=== PATIENT | male | born 1985 | race Caucasian/White ===

== ENCOUNTER 2020-08-17 19:06 | Emergency (ER) | payer SELFPAY ==
[2020-08-17 19:22] VITALS: BP 127/73; PULSE 81; RESP 16; TEMP 36.7; O2SAT 97; BMI 21.7
--- NOTE | 2020-08-17 20:24 | W.ED.ABDPA2 ---
HPI - Abdominal Pain General: Chief Complaint: Abdominal Pain Stated Complaint: STOMACH PAINS, VOMTING BLOOD (DARK & BRIGHT) Time Seen by Provider: 08/17/20 20:23 History of Present Illness: HPI narrative: Patient is a 35-year-old male who comes to the ED with abdominal pain and nausea and vomiting. Patient says he has been having some mild abdominal pain for the past month. He says he also has some nausea and vomiting that goes along with that. He states that today he woke up and he was having more severe and intense abdominal pain that was centrally located. He rates the pain about an 8 out of 10. He said he has had about 3 episodes of emesis today and said there was a little bit of blood in his vomit today as well. He endorses having diarrhea as well for the past month. Denies any chest pain, shortness of breath, dysuria or hematuria. Patient says he has not had any abdominal surgeries in the past. Associated Symptoms: Reports diarrhea, nausea and vomiting; Denies chills, constipation, dysuria, fever(s), hematochezia and hematuria Review of Systems Const: Denies: fever(s), chills or fatigue Eyes: Denies: change in vision or eye discomfort ENMT: Denies: throat pain, odynophagia, nasal discharge or nasal congestion Card: Denies: chest pain, palpitations, edema, swelling of feet/ankles, dyspnea on exertion or orthopnea Resp: Denies: dyspnea, productive cough or non-productive cough GI: Reports: abdominal pain, nausea, vomiting and diarrhea; Denies: constipation or hematochezia : Denies: flank pain, difficulty urinating, dysuria or hematuria Musc: Denies: neck pain, back pain or extremity swelling Skin/Breast: Denies: rash or new lesions Neuro: Denies: headache(s), numbness in extremities or weakness in extremities Physical Exam Const: COMMON NORMALS: no acute distress, patient oriented x3, healthy appearing and alert GENERAL APPEARANCE: cooperative and comfortable HENMT: COMMON NORMALS: normocephalic HEAD & SCALP: normocephalic MOUTH: Normal oral and palatal mucosa present THROAT: posterior oropharynx normal and uvula midline Neck/C-Spine: COMMON NORMALS: supple GENERAL: Yes normal visual inspection Resp: COMMON NORMALS: normal respiratory effort, No retractions, No use of accessory muscles and clear to auscultation bilaterally AUSCULTATION: clear to auscultation bilaterally Cardio: COMMON NORMALS: regular rate, regular rhythm, S1 normal heart sound present, S2 normal heart sound present, No gallops present (Cardio), No clicks present (Cardio), No murmurs present (Cardio) and Peripheral pulses 2+ throughout RATE: regular rate RHYTHM: regular rhythm HEART SOUNDS: S1 normal heart sound present and S2 normal heart sound present PERIPHERAL PULSES: Peripheral pulses 2+ throughout GI: COMMON NORMALS: Normal to inspection, nondistended, normoactive bowel sounds present, Soft to palpation and no masses PALPATION: Yes Soft to palpation and Yes Tenderness to palpation present (GI) Details: other (Periumbilical tenderness) : COMMON NORMALS: Yes no CVA tenderness BLADDER/KIDNEY EXAM: Yes no CVA tenderness Back/Pelvis: COMMON NORMALS: no CVA tenderness Extremity: COMMON NORMALS: normal to inspection Neuro: COMMON NORMALS: patient oriented x3 SENSORIUM/ORIENTATION: Yes alert GAIT: Yes Normal gait present Skin: GENERAL SKIN EXAM: dry skin Course Vital Signs: Vital signs: Vital Signs Temperature 98.1 F 08/17/20 19:22 Pulse Rate 20 L 08/17/20 23:32 Respiratory Rate 78 H 08/17/20 23:32 Blood Pressure 120/78 08/17/20 23:32 Pulse Oximetry 100 08/17/20 23:32 MDM - Abdominal Pain MDM Narrative: Medical decision making narrative: Patient is a 35-year-old male comes to the ED with abdominal pain, nausea/vomiting and diarrhea. He has been having the symptoms for about a month but he says today they got worse. Patient appears nontoxic and in no acute distress. He had some periumbilical abdominal tenderness but rest of exam was benign. CBC, CMP, lipase and UA were all unremarkable. CT of abdomen pelvis showed no acute findings. Patient was given some IV fluids, Zofran and morphine willing in the ED and his symptoms did improve. Patient diagnosed with abdominal pain and viral gastroenteritis and discharged charged home with some dicyclomine and Zofran. Patient was also wanting to get established with a PCP so I placed order with case management for patient to be referred to a PCP who is taking patients. Return to ED precautions given. I told patient that case management will be contacting him in the next several days set up appoint with the PCP. Patient understood agree with plan. Lab Data: Attestation: I reviewed the patient's lab results. Labs: Lab Results 08/17/20 08/17/20 08/17/20 Range/Units 20:25 20:25 20:25 WBC 7.7 (4.0-10.0) 10^3/ uL RBC 5.18 (4.1-5.3) 10^6/u L Hgb 15.8 (11.7-16.6) g/dL Hct 46.9 (42.0-52.0) % MCV 90.5 (80-94) fL MCH 30.5 (28.0-34.0) pg MCHC 33.7 (30.0-36.0) g/dL RDW 12.5 (12.1-15.1) % Plt Count 266 (130-400) 10^3/c mm MPV 9.8 (7.4-10.4) fL Neut % (Auto) 58.1 % Lymph % (Auto) 31.8 % [place] % (Auto) 8.2 % Eos % (Auto) 1.3 % Baso % (Auto) 0.3 % Neut # (Auto) 4.47 (1.8-7.7) 10^3/u L Lymph # (Auto) 2.4 (0.8-4.8) 10^3/u L [place] # (Auto) 0.6 (0.2-0.9) 10^3/u L Eos # (Auto) 0.1 (0.0-0.8) 10^3/u L Baso # (Auto) 0.0 (0.0-0.1) 10^3/u L Nucleated RBC % (a uto) 0 % Nucleated RBCs # 0.0 /100WBC PT 14.60 (12.1-14.9) SECO NDS INR 1.10 (0.8-1.2) Sodium 140 (136-145) mmol/L Potassium 3.7 (3.5-5.1) mmol/L Chloride 103 (98-107) mmol/L Carbon Dioxide 29 (22-29) mmol/L Anion Gap 11.7 (5-19) BUN 7 (6-20) mg/dL Creatinine 1.1 (0.7-1.2) mg/dL GFR Calculation 76.2 L (90-130) mL/min Glucose 90 (65-115) mg/dL Calculated Osmolal ity 288 (285-295) mOsm/k g Calcium 9.3 (8.5-10.5) mg/dL Total Bilirubin 0.5 (0.15-1.2) mg/dL AST 14 (0-40) U/L ALT 9 (0-41) U/L Alkaline Phosphata se 73 (40-130) IU/L Total Protein 7.2 (6.6-8.7) g/dL Albumin 4.5 (3.5-5.2) g/dL Globulin 2.7 (1.3-4.6) g/dL Lipase 50 (13-60) U/L Urine Color (Yellow) Urine Appearance (CLEAR) Urine pH (5-7) Ur Specific Gravit y (1.005-1.030) Urine Protein (Negative) Urine Glucose (UA) (Normal) Urine Ketones (Negative) Urine Blood (Negative) Urine Nitrate (Negative) Urine Bilirubin (Negative) Urine Urobilinogen (Negative) mg/dL Ur Leukocyte Fifi ase (Negative) Urine RBC (0-2) /hpf Urine WBC (0-5) /hpf Ur Squamous Epith Cells (0-5) /hpf Amorphous Sediment /hpf Urine Bacteria (NONE) /hpf Urine Mucus /hpf 08/17/ Range/Units 21:20 WBC (4.0-10.0) 10^3/ uL RBC (4.1-5.3) 10^6/u L Hgb (11.7-16.6) g/dL Hct (42.0-52.0) % MCV (80-94) fL MCH (28.0-34.0) pg MCHC (30.0-36.0) g/dL RDW (12.1-15.1) % Plt Count (130-400) 10^3/c mm MPV (7.4-10.4) fL Neut % (Auto) % Lymph % (Auto) % [place] % (Auto) % Eos % (Auto) % Baso % (Auto) % Neut # (Auto) (1.8-7.7) 10^3/u L Lymph # (Auto) (0.8-4.8) 10^3/u L [place] # (Auto) (0.2-0.9) 10^3/u L Eos # (Auto) (0.0-0.8) 10^3/u L Baso # (Auto) (0.0-0.1) 10^3/u L Nucleated RBC % (a uto) % Nucleated RBCs # /100WBC PT (12.1-14.9) SECO NDS INR (0.8-1.2) Sodium (136-145) mmol/L Potassium (3.5-5.1) mmol/L Chloride (98-107) mmol/L Carbon Dioxide (22-29) mmol/L Anion Gap (5-19) BUN (6-20) mg/dL Creatinine (0.7-1.2) mg/dL GFR Calculation (90-130) mL/min Glucose (65-115) mg/dL Calculated Osmolal ity (285-295) mOsm/k g Calcium (8.5-10.5) mg/dL Total Bilirubin (0.15-1.2) mg/dL AST (0-40) U/L ALT (0-41) U/L Alkaline Phosphata se (40-130) IU/L Total Protein (6.6-8.7) g/dL Albumin (3.5-5.2) g/dL Globulin (1.3-4.6) g/dL Lipase (13-60) U/L Urine Color Yellow (Yellow) Urine Appearance Clear (CLEAR) Urine pH 6.5 (5-7) Ur Specific Gravit y 1.010 (1.005-1.030) Urine Protein Neg (Negative) Urine Glucose (UA) Norm (Normal) Urine Ketones Negative (Negative) Urine Blood Neg (Negative) Urine Nitrate Negative (Negative) Urine Bilirubin Neg (Negative) Urine Urobilinogen 1 H (Negative) mg/dL Ur Leukocyte Fifi ase Negative (Negative) Urine RBC 0-4 H (0-2) /hpf Urine WBC 0-4 H (0-5) /hpf Ur Squamous Epith Cells 0-4 H (0-5) /hpf Amorphous Sediment 1+ /hpf Urine Bacteria Trace (NONE) /hpf Urine Mucus 2+ /hpf Imaging Data ^: CT Abd/Pel: Attestation: I personally reviewed and interpreted this imaging study as follows: Radiologist's impression: [facility] [address] [place] [address] CT Scan Report Signed Patient: Catracho Joseph Unit #: [id number] : 1985 Age/Sex: 35 / M ADM Date: 08/17/20 Loc: ER Room/Bed: Attending Dr: Ordering Provider/Ordering MD: Jasen Huang Date of Service: 08/17/20 Procedure(s): CT abdomen pelvis w con* [id number] Accession Number(s): [id number] Report Number: [id number] PROCEDURE INFORMATION: Exam: CT Abdomen And Pelvis With Contrast Exam date and time: 08/17/2020 8:31 PM Age: 35 years old Clinical indication: Abdominal pain; Patient HX: N/v/d generalized abd pain x 1mo; Additional info: Periumbilical abdominal pain with n/v TECHNIQUE: Imaging protocol: Computed tomography of the abdomen and pelvis with contrast. Total images: 214 Radiation optimization: All CT scans at this facility use at least one of these dose optimization techniques: automated exposure control; mA and/or kV adjustment per patient size (includes targeted exams where dose is matched to clinical indication); or iterative reconstruction. Contrast material: OMNI 300; Contrast volume: 95 ml; Contrast route: INTRAVENOUS (IV); COMPARISON: No relevant prior studies available. RADIATION DOSE METRICS: Total DLP (mGy-cm): 797.57 FINDINGS: Lungs: Limited assessment of the lung bases fails to reveal evidence for active cardiopulmonary process. Liver: Rare tiny simple hepatic cyst. No visible hepatic mass. Gallbladder and bile ducts: Normal. No calcified stones. No ductal dilation. Pancreas: Pancreas is unremarkable. No visible pancreatic ductal ectasia. Spleen: Spleen unremarkable. Adrenal glands: Adrenal glands unremarkable. Kidneys and ureters: No hydronephrosis or perinephric fluid. No visible nephrolithiasis or visible ureterolithiasis Small simple cortical cyst equator left kidney measuring 8 mm. No follow-up recommended. Stomach and bowel: Assessment of the hollow viscus fails to reveal evidence of active or acute pathology. Nonobstructed bowel pattern. No visible acute diverticulitis. No visible adynamic or reactive ileus. Appendix: The appendix is visualized and appears noninflamed. Intraperitoneal space: No visible evidence of mesenteric lymphadenitis or active mesenteritis/panniculitis. No visible pneumoperitoneum or intraperitoneal ascites. Vasculature: Portal vein patent. The abdominal aorta is nonaneurysmal. Lymph nodes: No current visible evidence of active mesenteric or retroperitoneal lymphadenopathy. Urinary bladder: Urinary bladder unremarkable. Reproductive: Unremarkable as visualized. Bones/joints: No visible active or acute osseous pathology. Soft tissues: Unremarkable. CT/CT abdomen pelvis w con* [id number] IMPRESSION: Currently no visible evidence for acute abdominal or pelvic pathologic process. Radiation Dose CTDIVOL = (mGy): DLP = 797.57 (mGy-cm) Dictated By: Julito Worrell Signed By: Julito Worrell Signed Date/Time: 08/17/202225 DD/ 24 Discharge Plan Discharge Patient Disposition: Home Clinical Impression: Viral gastroenteritis Abdominal pain Qualifiers: Abdominal location: periumbilical Qualified Code(s): R10.33 - Periumbilical pain Condition: Stable Prescriptions: New dicyclomine 20 mg tablet 20 mg PO QID Qty: 30 RF: 0 ondansetron 4 mg tablet,disintegrating 4 mg PO Q8H PRN (Reason: nausea and vomiting) Qty: 15 RF: 0 Discharge Orders: Discharge ED (Routine); Ordered 08/17/20 Ordered By: Jasen Huang Discharge Diet: Advance as tolerated and Clear Liquid Discharge Activity: Increase activity as tolerated Patient Instructions: Gastroenteritis (ED), Abdominal Pain (ED) Activity Restrictions/Additional Instructions: Follow-up with medical provider as directed. Case management will contact you in the next several days to set up an appointment with a primary care physician. Take medications as prescribed. Return to the ER or your medical provider if condition worsens. Please read and understand discharge instructions. Thank you for choosing [facility] for your healthcare needs today. Please realize this is an emergency room and that we are providing you with a medical screening exam and this may not be complete and all inclusive of all the testing and or work up that you may need to determine your ailment or severity of your illness. It is very important that you follow up as instructed or that you return to the Emergency Department should you have concerns or if your condition changes or worsens in any way. Stand Alone Forms: Work/School Release Coding Level of Care Code ED Computational Biologist for Chg Fwd Exam Comprehensive
[2020-08-17 20:30] LABS: Basophils % 0.3 %; Eosinophils # 0.1 10^3/uL (0.0-0.8); Eosinophils % 1.3 %; Hematocrit 46.9 % (42.0-52.0); Hemoglobin 15.8 g/dL (11.7-16.6); Lymphocytes # 2.4 10^3/uL (0.8-4.8); Lymphocytes % 31.8 %; Mean Corpuscular HGB Conc 33.7 g/dL (30.0-36.0); Mean Corpuscular Hemoglobin 30.5 pg (28.0-34.0); Mean Corpuscular Volume 90.5 fL (80-94); Mean Platelet Volume 9.8 fL (7.4-10.4); Monocytes # 0.6 10^3/uL (0.2-0.9); Monocytes % 8.2 %; Neutrophils # 4.47 10^3/uL (1.8-7.7); Neutrophils % 58.1 %; Nucleated Red Blood Cells % 0 %; Platelet Count 266 10^3/cmm (130-400); Red Blood Count 5.18 10^6/uL (4.1-5.3); Red Cell Distribution Width 12.5 % (12.1-15.1); White Blood Count 7.7 10^3/uL (4.0-10.0)
--- NOTE | 2020-08-17 20:31 | CTR_ITS ---
PROCEDURE INFORMATION: Exam: CT Abdomen And Pelvis With Contrast Exam date and time: 08/17/2020 8:31 PM Age: 35 years old Clinical indication: Abdominal pain; Patient HX: N/v/d generalized abd pain x 1mo; Additional info: Periumbilical abdominal pain with n/v TECHNIQUE: Imaging protocol: Computed tomography of the abdomen and pelvis with contrast. Total images: 214 Radiation optimization: All CT scans at this facility use at least one of these dose optimization techniques: automated exposure control; mA and/or kV adjustment per patient size (includes targeted exams where dose is matched to clinical indication); or iterative reconstruction. Contrast material: OMNI 300; Contrast volume: 95 ml; Contrast route: INTRAVENOUS (IV); COMPARISON: No relevant prior studies available. RADIATION DOSE METRICS: Total DLP (mGy-cm): 797.57 FINDINGS: Lungs: Limited assessment of the lung bases fails to reveal evidence for active cardiopulmonary process. Liver: Rare tiny simple hepatic cyst. No visible hepatic mass. Gallbladder and bile ducts: Normal. No calcified stones. No ductal dilation. Pancreas: Pancreas is unremarkable. No visible pancreatic ductal ectasia. Spleen: Spleen unremarkable. Adrenal glands: Adrenal glands unremarkable. Kidneys and ureters: No hydronephrosis or perinephric fluid. No visible nephrolithiasis or visible ureterolithiasis Small simple cortical cyst equator left kidney measuring 8 mm. No follow-up recommended. Stomach and bowel: Assessment of the hollow viscus fails to reveal evidence of active or acute pathology. Nonobstructed bowel pattern. No visible acute diverticulitis. No visible adynamic or reactive ileus. Appendix: The appendix is visualized and appears noninflamed. Intraperitoneal space: No visible evidence of mesenteric lymphadenitis or active mesenteritis/panniculitis. No visible pneumoperitoneum or intraperitoneal ascites. Vasculature: Portal vein patent. The abdominal aorta is nonaneurysmal. Lymph nodes: No current visible evidence of active mesenteric or retroperitoneal lymphadenopathy. Urinary bladder: Urinary bladder unremarkable. Reproductive: Unremarkable as visualized. Bones/joints: No visible active or acute osseous pathology. Soft tissues: Unremarkable. CT/CT abdomen pelvis w con* [id number] IMPRESSION: Currently no visible evidence for acute abdominal or pelvic pathologic process. Radiation Dose CTDIVOL = (mGy): DLP = 797.57 (mGy-cm)
[2020-08-17] MEDS: sodium chloride 0.9% 1,000 ML 999 ML IV (20:45)
[2020-08-17 20:46] VITALS: RESP 18
[2020-08-17] MEDS: morphine 4 mg/mL SDV 1 mL IVP (20:46)
[2020-08-17] MEDS: ondansetron 2 mg/ML SDV 2 mL 4 MG IVP (20:46)
[2020-08-17 20:48] LABS: Alanine Aminotransferase 9 U/L (0-41); Albumin Level 4.5 g/dL (3.5-5.2); Alkaline Phosphatase 73 IU/L (40-130); Anion Gap 11.7 (5-19); Aspartate Amino Transferase 14 U/L (0-40); Blood Urea Nitrogen 7 mg/dL (6-20); Calcium 9.3 mg/dL (8.5-10.5); Carbon Dioxide 29 mmol/L (22-29); Chloride 103 mmol/L (98-107); Globulin 2.7 g/dL (1.3-4.6); Glomerular Filtration Rate 76.2 mL/min (90-130); Glucose 90 mg/dL (65-115); Lipase 50 U/L (13-60); Osmolality Calculated 288 mOsm/kg (285-295); Potassium 3.7 mmol/L (3.5-5.1); Sodium 140 mmol/L (136-145); Total Bilirubin 0.5 mg/dL (0.15-1.2); Total Protein 7.2 g/dL (6.6-8.7)
[2020-08-17 21:19] VITALS: BP 121/78; PULSE 62; RESP 18; O2SAT 100
[2020-08-17 21:36] LABS: Amorphous Sediment Urine 1+ /hpf; Bacteria Urine TRACE /hpf; Bilirubin Urine Neg (Negative); Blood Urine Neg (Negative); Glucose Urine UA Norm (Normal); Ketones Urine Negative (Negative); Leukocyte Esterase Urine Negative (Negative); Mucus Urine 2+ /hpf; Nitrate Urine Negative (Negative); Protein Urine Neg (Negative); RBC Urine 0-4 /hpf (0-2); Squamous Epithelial Cell Urine 0-4 /hpf (0-5); Urine Appearance Clear (CLEAR); Urine Color Yellow (Yellow); Urobilinogen Urine 1 mg/dL (Negative); WBC Urine 0-4 /hpf (0-5); pH Urine 6.5 (5-7)
[2020-08-17] MEDS: iohexol 300 mg/mL 100 mL Btl IV (21:57)
[2020-08-17 23:32] VITALS: BP 120/78; PULSE 20; RESP 78; O2SAT 100
--- NOTE | 2020-08-18 12:33 | PC.SOCIAL ---
Patient refused to be set up at this time with PCP. We discussed the sliding scale option at [facility] and provided patient the number. He did write this down and repeated number back. He has no further needs at this time.
== END 2020-08-17 23:00 | disposition home or self-care (01) ==
PROVIDERS: Emergency Medicine; Emergency Provider Physician Assistant
DX: A08.4 Viral intestinal infection, unspecified (principal); R10.33 Periumbilical pain
CPT/HCPCS: 74177; 80053; 81001; 83690; 85025; 85610; 96361; 96374; 96375; 99284; J2270; J2405; J7030; Q9967

== ENCOUNTER 2020-10-25 11:15 | Emergency (ER) | payer SELFPAY ==
--- NOTE | 2020-10-25 11:34 | XRR_ITS ---
PROCEDURE INFORMATION: Exam: XR Left Knee Exam date and time: 10/25/2020 11:34 AM Age: 35 years old Clinical indication: Pain; Knee; Left; Additional info: L knee pain TECHNIQUE: Imaging protocol: XR Left knee. Views: 1 or 2 views. COMPARISON: No relevant prior studies available. FINDINGS: Bones/joints: Negative for acute bony abnormality Soft tissues: Normal. XR/XR knee LT 1-2V 57211 IMPRESSION: No acute findings.
[2020-10-25 11:37] VITALS: BP 117/77; PULSE 77; RESP 17; TEMP 36.8; O2SAT 97; BMI 21.7
[2020-10-25 11:56] VITALS: BP 123/71; PULSE 72; RESP 16; O2SAT 100
--- NOTE | 2020-10-25 12:21 | W.ED.EXTPRO ---
HPI - Extremity Problem General: Chief complaint: Extremity Problem,Nontraumatic Stated complaint: left knee injury Time Seen by Provider: 10/25/20 11:32 Review of Systems Narrative: Constitutional: No fever, no chills. HEENT: No vision changes CV: No chest pain, no palpitations PULM: no cough, no dyspnea. GI: No abdominal pain, no N/V/D. : No dysuria MSKEL: No muscle pain SKIN: No new rashes, no lesions. NEURO: No headache, no focal weakness. HEME: No visible bruises PSYCH: Normal mood Physical Exam Narrative: EXAM NARRATIVE: Head: Atraumatic Eyes: PERRL, conjunctiva without injection ENT: Mucous membrane moist NECK: Supple, ROM intact LUNGS: LCTAB, no crackles/rhonchi CV: RRR ABDOMEN: Soft, nontender in all quadrants EXTREMITY: Normal ROM SKIN: No rash or erythema NEURO: Awake and alert, no focal motor deficits PSYCH: Normal mood and affect Course Vital Signs: Vital signs: Vital Signs Temperature 98.3 F 10/25/20 11:37 Pulse Rate 72 10/25/20 11:56 Respiratory Rate 16 10/25/20 11:56 Blood Pressure 123/71 10/25/20 11:56 Pulse Oximetry 100 10/25/20 11:56 Discharge Plan Discharge Patient Disposition: Home Clinical Impression: Acute knee pain, Knee swelling Condition: Stable Prescriptions: New Voltaren Arthritis Pain 1 % gel 2 g topical BID PRN (Reason: pain) 7 Days Qty: 100 RF: 0 lidocaine 3 % cream 1 applic topical BID PRN (Reason: pain) 7 Days Qty: 28.35 RF: 0 acetaminophen 500 mg capsule 500 mg PO Q6H PRN (Reason: pain) 7 Days Qty: 28 RF: 0 No Action dicyclomine 20 mg tablet 20 mg PO QID Qty: 30 RF: 0 ondansetron 4 mg tablet,disintegrating 4 mg PO Q8H PRN (Reason: nausea and vomiting) Qty: 15 RF: 0 Discharge Diet: Advance as tolerated Discharge Activity: Resume usual activity Patient Instructions: Knee Pain (ED) Activity Restrictions/Additional Instructions: Please follow up with orthopedics for further evaluation of knee pain Coding Level of Care Code 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
--- NOTE | 2020-10-25 12:26 | ED_ITS ---
HPI - General Adult General: Chief complaint: Extremity Problem,Nontraumatic Stated complaint: left knee injury Time Seen by Provider: 10/25/20 11:32 History of Present Illness: HPI narrative: Patient is a 35-year-old male presents the emergency room with complaints of left knee swelling and pain x 1 day. Patient was try to get up he suddenly noticed that his knee twisted and became painful. Patient denies any obvious dislocation. Persistent, patient reports left knee swelling and decreased range of motion due to pain. Patient denies any other trauma or injury at this time. No other focal complaints. Onset:1 day ago Duration:1 day Location:home Severity:mild/moderate Review of Systems Narrative: Constitutional: No fever, no chills. HEENT: No vision changes CV: No chest pain, no palpitations PULM: no cough, no dyspnea. GI: No abdominal pain, no N/V/D. : No dysuria MSKEL: No muscle pain, + L knee pain/swelling SKIN: No new rashes, no lesions. NEURO: No headache, no focal weakness. HEME: No visible bruises PSYCH: Normal mood Physical Exam Narrative: EXAM NARRATIVE: Head: Atraumatic Eyes: PERRL, conjunctiva without injection ENT: Mucous membrane moist NECK: Supple, ROM intact LUNGS: LCTAB, no crackles/rhonchi CV: RRR ABDOMEN: Soft, nontender in all quadrants EXTREMITY: Normal ROM, 2+ DP pulses in the left lower extremity, neurovascular exam of the left leg intact, left knee swelling. Tenderness to palpation over the left knee. Patient is able to straighten the left knee. Negative Lachemann sign, +L anterior medial knee tenderness to lateral varus stress to the L leg SKIN: No rash or erythema NEURO: Awake and alert, no focal motor deficits PSYCH: Normal mood and affect Course Vital Signs: Vital signs: Vital Signs Temperature 98.3 F 10/25/20 11:37 Pulse Rate 74 10/25/20 12:44 Respiratory Rate 16 10/25/20 12:44 Blood Pressure 121/79 10/25/20 12:44 Pulse Oximetry 98 10/25/20 12:44 MDM - General Adult MDM Narrative: Medical decision making narrative: Patient is a 35-year-old male who presents the emergency room with complaints of left knee swelling and pain after attempting to stand up straight was 1 day ago. X-ray did not show any signs of fracture. Patient received Tylenol in the emergency room. No suspicion of knee dislocation. I recommended RICE therapy for knee swelling and pain. Patient is given follow- up with orthopedic provider for evaluation of possible ligamentous injury. Patient is knee is placed in a knee immobilizer for comfort and crutches. Rx capsaicin, voltaren cream, and tylenol PRN pain. Position discharge. I have informed patient I have the referred him through our dependency case managermanager bilingual and he will be contacted in the next few days to schedule him for an appointment with orthopedics for further evaluation. Imaging Data^: Other Imaging: Radiologist's impression: [address] [address]DX[place] ReportSigned Patient: Catracho JosephUnvladimir #: [id number]: 1985Acct#:[id number]/Sex: 35 / MADM Date: 10/25/20Loc: ERRoo/Bed:Attending Dr: Ordering Provider/Ordering MD: Jenelle Abraham MD Date of Service: 10/25/20 Procedure(s): XR knee LT 1-2V 47596 Accession Number(s): [id number] Report Number: [id number] PROCEDURE INFORMATION: Exam: XR Left Knee Exam date and time: 10/25/2020 11:34 AM Age: 35 years old Clinical indication: Pain; Knee; Left; Additional info: L knee pain TECHNIQUE: Imaging protocol: XR Left knee. Views: 1 or 2 views. COMPARISON: No relevant prior studies available. FINDINGS: Bones/joints: Negative for acute bony abnormality Soft tissues: Normal. XR/XR knee LT 1-2V [id number] IMPRESSION: No acute findings. Dictated By:Reymundo Clifton By:Reymundo Clifton Date/Time:10/25/20 1255DD/ 1253 Discharge Plan Discharge Patient Disposition: Home Clinical Impression: Acute knee pain, Knee swelling Condition: Stable Prescriptions: New Voltaren Arthritis Pain 1 % gel 2 g topical BID PRN (Reason: pain) 7 Days Qty: 100 RF: 0 lidocaine 3 % cream 1 applic topical BID PRN (Reason: pain) 7 Days Qty: 28.35 RF: 0 acetaminophen 500 mg capsule 500 mg PO Q6H PRN (Reason: pain) 7 Days Qty: 28 RF: 0 No Action dicyclomine 20 mg tablet 20 mg PO QID Qty: 30 RF: 0 ondansetron 4 mg tablet,disintegrating 4 mg PO Q8H PRN (Reason: nausea and vomiting) Qty: 15 RF: 0 Discharge Orders: Discharge ED (Routine); Ordered 10/25/20 Ordered By: Jenelle Abraham Discharge Diet: Advance as tolerated Discharge Activity: Resume usual activity Patient Instructions: Knee Pain (ED) Activity Restrictions/Additional Instructions: Please follow up with orthopedics for further evaluation of knee pain and swelling. Come back to the emergency room if you have any new or concerning issues. Our dependency case manager will call you in the next few days to schedule you for orthopedics appointment. Please use knee immobilizers, pain medicine and crutches as needed for pain and swelling. 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
[2020-10-25] MEDS: acetaminophen 500 mg Tablet PO (12:38)
[2020-10-25 12:44] VITALS: BP 121/79; PULSE 74; RESP 16; O2SAT 98
--- NOTE | 2020-10-26 10:28 | DCPLANNER ---
practice manager had message to schedule a follow up appointment for patient with ortho. practice manager called the ortho clinic, spoke with Jeana, gave clinic patients information. practice manager was told that patients information would be printed and reviewed. Clinic will call patient with appointment information.
--- NOTE | 2020-10-27 08:00 | DCPLANNER ---
Patient has a follow up appointment scheduled for Monday, October 28, 2020 at 10:[address] Holden at [facility]. Clinic will call patient with appointment information.
--- NOTE | 2020-11-20 09:14 | DCPLANNER ---
Patient had a follow up appointment scheduled for 10.28.20 with ortho - patient did not attend appointment.
== END 2020-10-25 12:51 | disposition home or self-care (01) ==
PROVIDERS: Emergency Provider Emergency Medicine
DX: M25.562 Pain in left knee (principal); M25.462 Effusion, left knee
CPT/HCPCS: 29530; 73560; 99283; E0114

== ENCOUNTER 2021-06-17 06:56 | Emergency (ER) | payer SELFPAY ==
[2021-06-17 07:18] VITALS: BP 144/90; PULSE 78; RESP 18; TEMP 36.7; O2SAT 99; BMI 21.7
--- NOTE | 2021-06-17 07:38 | ED_ITS ---
HPI - Male Genitourinary General: Chief complaint: Urogenital-Male Stated complaint: wants checked for std Time Seen by Provider: 06/17/21 07:18 History of Present Illness: 35-year-old male presents emergency department chief complaint of urethritis painful urination concerns of STD reports he got hooked back up with his ex in which he has developed dysuria this he reported that this is sexual contact was earlier this week. He reports having a known history of gonorrhea as well as chlamydia. He does not recall any known history of any HIV or AIDS or any other sexually transmitted diseases he recalls having no abdominal pain reports no fevers no chills no back or flank pain or any other associated symptoms. Associated symptoms: Reports dysuria; Deny nausea or vomiting Review of Systems General: Reports: 10 or more systems reviewed and unremarkable except in HPI and below Const: Denies: fever(s), chills, fatigue or malaise Eyes: Denies: change in vision or blurry vision Card: Denies: chest pain or palpitations Resp: Denies: dyspnea or productive cough GI: Denies: abdominal pain, nausea or vomiting : Reports: difficulty urinating, dysuria, urinary frequency, urinary urgency and penile discharge; Denies: flank pain Musc: Denies: extremity pain or extremity swelling Skin/Breast: Denies: rash or pruritus Neuro: Denies: headache(s) Psych: Denies: anxiety or depression Brody/Lymph: Denies: easy bleeding All/Imm: Denies: urticaria, throat swelling or facial swelling Physical Exam Narrative: EXAM NARRATIVE: Patient appears nontoxic. No obvious acute distress Const: COMMON NORMALS: no acute distress, patient oriented x3 and healthy appearing HENMT: COMMON NORMALS: normocephalic and atraumatic HEAD & SCALP: normocephalic and atraumatic Eye: COMMON NORMALS: Equal, round and reactive pupils present and EOMs intact bilaterally PUPIL: Yes Equal, round and reactive pupils present Neck/C-Spine: COMMON NORMALS: full ROM, supple and no JVD Lymph: LYMPHATIC: no lymphadenopathy noted Chest: COMMONS NORMALS: normal inspection of the chest and normal palpation of entire chest wall Resp: COMMON NORMALS: normal respiratory effort, No retractions and clear to auscultation bilaterally EFFORT & INSPECTION: Yes able to speak in complete sentences and Yes symmetric chest movement AUSCULTATION: clear to auscultation bilaterally Cardio: COMMON NORMALS: no JVD, regular rate and regular rhythm RATE: regular rate RHYTHM: regular rhythm GI: COMMON NORMALS: Normal to inspection, nondistended, normoactive bowel sounds present, Soft to palpation and non-tender INSPECTION: Yes normal to inspection PALPATION: Yes Soft to palpation : COMMON NORMALS: Yes no CVA tenderness BLADDER/KIDNEY EXAM: Yes no CVA tenderness PENIS: circumcised OTHER: Mild whitish penile urethral discharge appreciated Back/Pelvis: COMMON NORMALS: no CVA tenderness Extremity: COMMON NORMALS: normal to inspection and full ROM Neuro: COMMON NORMALS: patient oriented x3, CN's II-XII intact bilaterally, moves all extremities and no focal motor deficits Psych: COMMON NORMALS: mental status grossly normal, Normal thought process present, cooperative and normal affect THOUGHT PROCESS: Normal thought pr ocess present Skin: COMMON NORMALS: no rashes or lesions noted GENERAL SKIN EXAM: no rashes or lesions noted Course Vital Signs: Vital signs: Vital Signs Temperature 98.0 F 06/17/21 07:18 Pulse Rate 78 06/17/21 07:18 Respiratory Rate 18 06/17/21 07:18 Blood Pressure 144/90 06/17/21 07:18 Pulse Oximetry 99 06/17/21 07:18 MDM - Male Medical Decision Making Due to the patient's concerns GC cultures will be obtained patient will provided 1 g of Rocephin intramuscularly as well as a gram of azithromycin p.o. Patient was advised to contact all the sexual contact and let them follow-up with the health department for further assessment management I did advise the patient that we do not do comprehensive STD screening including HIV as well as syphilis in which I advised he wanted more of a comprehensive STD screen he need to further follow-up with primary care doctor or health department for further eval. Patient was advised further follow-up anyway with primary care in 2 to 3 days and she was advised to return the interim if any of his symptoms persist or worse. Discharge Plan Discharge Patient Disposition: Home Clinical Impression: Urethritis, Exposure to sexually transmitted disease (STD) Condition: Stable Prescriptions: No Action dicyclomine 20 mg tablet 20 mg PO QID Qty: 30 0RF ondansetron 4 mg tablet,disintegrating 4 mg PO Q8H PRN (Reason: nausea and vomiting) Qty: 15 0RF Discharge Orders: Discharge ED (Routine); Ordered 06/17/21 Ordered By: Sumeet Valenzuela Discharge Diet: Usual diet Discharge Activity: Resume usual activity Activity Restrictions/Additional Instructions: Please follow-up with the health department or your primary care doctor in the next 2 to 3 days if your test results come back positive you will be contacted in regards to the ear positive results you to have no sexual contact with anyone until you are symptomatic free for over 10 days you are also advised to contact all of your sexual contacts and to let them know of what your concerns are. Josue evans return the interim if any of your symptoms persist or worse. 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
[2021-06-17] MEDS: azithromycin 250 mg Tablet 1000 MG PO (07:57)
[2021-06-17] MEDS: cefTRIAXone 1,000 MG in lidocaine 1% 2.1 ML 1 MG IM (08:00)
[2021-06-17 08:11] VITALS: BP 138/78; PULSE 85; RESP 17; O2SAT 99
== END 2021-06-17 08:11 | disposition home or self-care (01) ==
PROVIDERS: Emergency Provider Emergency Medicine
DX: N34.2 Other urethritis (principal); Z20.2 Contact with and (suspected) exposure to infections with a predominantly sexual mode of transmission
CPT/HCPCS: 87081; 87205; 96372; 99283; J0696; Q0144

== ENCOUNTER 2021-09-29 09:53 | Emergency (ER) | payer MEDICAID, SELFPAY ==
--- NOTE | 2021-09-29 09:56 | XRR_ITS ---
PROCEDURE INFORMATION: Exam: XR Right Knee Exam date and time: 09/29/2021 10:10 AM Age: 36 years old Clinical indication: Injury or trauma; Other: Hit knee; Blunt trauma; Injury details: Patient states just prior to arrival he was bent down using a sledgehammer to loosen a ball joint on a trailer hitch when he accidentally missed and struck the medial aspect of his right knee. TECHNIQUE: Imaging protocol: Radiologic exam of the Right knee. Views: 3 views. COMPARISON: No relevant prior studies available. FINDINGS: Bones/joints: No fracture or dislocation. Trace joint effusion seen. Soft tissues: Normal. XR/XR knee RT 3V* [id number] IMPRESSION: No acute findings.
[2021-09-29 10:06] VITALS: BP 122/80; PULSE 107; RESP 17; TEMP 36.8; O2SAT 98; BMI 21.7
--- NOTE | 2021-09-29 10:29 | ED_ITS ---
HPI - Extremity Injury (Lower) General: Chief Complaint: Extremity Injury, Lower Stated Complaint: right knee injury Time Seen by Provider: 09/29/21 09:56 Source: patient Mode of arrival: ambulatory Limitations: no limitations History of Present Illness: Patient is a 36-year-old male who presents to ED today for evaluation of right knee injury. Patient states just prior to arrival he was bent down using a sledgehammer to loosen a ball joint on a trailer hitch when he accidentally missed and struck the medial aspect of his right knee. Patient states he has been minimally ambulatory on the extremity since the incident. He has no other injuries or complaints at this time. complaint: knee injury Onset (ago): hour(s) Injury: Right: knee Type of Injury: blunt Place: home Severity: moderate Relieving factors: immobilization Exacerbating factors: weight bearing, movement and palpation Context: direct blow Associated symptoms: Reports no associated symptoms Other symptoms: none Review of Systems Musc: Reports: joint pain (R knee); Denies: extremity pain, extremity swelling or joint swelling Neuro: Denies: numbness in extremities or sensory changes Physical Exam Const: COMMON NORMALS: no acute distress, patient oriented x3, no limitations and alert GENERAL APPEARANCE: cooperative Extremity: COMMON NORMALS: capillary refill normal, no joint enlargement, no clubbing, cyanosis or edema, no calf tenderness and no pedal edema GENERAL: Yes normal exam except as noted RIGHT LOWER EXTREMITY: Yes knee joint (TTP medial aspect R knee; minimal swelling noted) Right knee: Yes palpation (no bony deformities visualized or palpated), Yes ROM (full but painful ROM) and Yes neurovascular exam (normal) Neuro: COMMON NORMALS: patient oriented x3, moves all extremities, no focal motor deficits and no sensory deficits noted SENSORIUM/ORIENTATION: Yes alert Skin: TRAUMA: no lacerations or abrasions Course Vital Signs: Vital signs: Vital Signs Temperature 98.2 F 09/29/21 10:33 Pulse Rate 107 H 09/29/21 10:33 Respiratory Rate 17 09/29/21 10:33 Blood Pressure 122/80 09/29/21 10:33 Pulse Oximetry 98 09/29/21 10:33 Oxygen Delivery Me thod 09/29/21 10:33 MDM - Extremity Injury (Lower) Medical Decision Making XR negative. Will give crutches/BENITO wrap/instructions for ice/RICE therapy/weight bearing as tolerated/follow up with PCP in 1-2 weeks for continued pain. 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
[2021-09-29 10:33] VITALS: BP 122/80; PULSE 107; RESP 17; TEMP 36.8; O2SAT 98
== END 2021-09-29 11:00 | disposition home or self-care (01) ==
PROVIDERS: Emergency Provider Physician Assistant
DX: S80.01XA Contusion of right knee, initial encounter (principal); W22.8XXA Striking against or struck by other objects, initial encounter
CPT/HCPCS: 73562; 99283; E0114

== ENCOUNTER 2021-12-08 12:45 | Outpatient (CLI) | payer BC, MEDICAID, SELFPAY ==
--- NOTE | 2021-12-08 | XRR_ITS ---
PROCEDURE INFORMATION: Exam: XR Lumbosacral Spine Exam date and time: 12/08/2021 1:11 PM Age: 36 years old Clinical indication: Low back pain; Additional info: Chronic pain TECHNIQUE: Imaging protocol: Radiologic exam of the lumbosacral spine. Views: 6 or more views. Including flexion and extension views. COMPARISON: CT abdomen pelvis w con* [id number] 08/17/2020 9:50 PM FINDINGS: Bones/joints: Normal. No acute fracture. Normal alignment. Soft tissues: Unremarkable. XR/XR lumbar spine 6V w f/e [id number] IMPRESSION: No acute findings.
--- NOTE | 2021-12-08 | XRR_ITS ---
PROCEDURE INFORMATION: Exam: XR Thoracic Spine Exam date and time: 12/08/2021 1:11 PM Age: 36 years old Clinical indication: Pain in thoracic spine; Additional info: Chronic pain TECHNIQUE: Imaging protocol: Radiologic exam of the thoracic spine. Views: 3 views. COMPARISON: CT abdomen pelvis w con* [id number] 08/17/2020 9:50 PM FINDINGS: Bones/joints: Normal. No acute fracture. Normal alignment. Soft tissues: Unremarkable. XR/XR thoracic spine 3V* [id number] IMPRESSION: No acute findings.
--- NOTE | 2021-12-08 12:58 | XRR_ITS ---
PROCEDURE INFORMATION: Exam: XR Right Knee Exam date and time: 12/08/2021 1:11 PM Age: 36 years old Clinical indication: Pain; Knee; Right; Additional info: Pain in right knee TECHNIQUE: Imaging protocol: Radiologic exam of the Right knee. Views: 3 views. COMPARISON: CR XR knee RT 3V* [id number] 09/29/2021 10:10 AM FINDINGS: Bones/joints: Normal. Soft tissues: Normal. XR/XR knee RT 3V* [id number] IMPRESSION: No acute findings.
== END 2021-12-08 12:46 | disposition home or self-care (01) ==
LOC: RAD 12:49
PROVIDERS: Visit Provider Family Medicine
DX: M25.561 Pain in right knee (principal); G89.29 Other chronic pain
CPT/HCPCS: 72072; 72114; 73562

== ENCOUNTER 2022-09-13 16:57 | Outpatient (CLI) | payer BC, MEDICAID, SELFPAY ==
--- NOTE | 2022-09-13 | XRR_ITS ---
PROCEDURE INFORMATION: Exam: XR Right Hand Exam date and time: 09/13/2022 5:07 PM Age: 37 years old Clinical indication: Pain; Hand; Right; Additional info: Hand joint pain, right TECHNIQUE: Imaging protocol: Radiologic exam of the right hand. Views: 1 or 2 views. COMPARISON: No relevant prior studies available. FINDINGS: Bones/joints: Normal. Soft tissues: Normal. XR/XR hand RT 2V [id number] IMPRESSION: No acute findings.
== END 2022-09-13 16:58 | disposition home or self-care (01) ==
LOC: RAD 16:59
PROVIDERS: PCP Family Medicine; Visit Provider Nurse Practitioner Family
DX: M79.641 Pain in right hand (principal)
CPT/HCPCS: 73120

== ENCOUNTER 2023-01-19 09:31 | Emergency (ER) | payer BC, MEDICAID, SELFPAY ==
[2023-01-19] VITALS (23 sets, daily range): BP systolic 121–155; BP diastolic 65–100; PULSE 62–88; RESP 13–26; TEMP 36.6; O2SAT 98–100; BMI 22.9
--- NOTE | 2023-01-19 09:33 | XRR_ITS ---
PROCEDURE INFORMATION: Exam: XR Chest Exam date and time: 01/19/2023 9:42 AM Age: 37 years old Clinical indication: Cough; Additional info: Dyspnea/cough TECHNIQUE: Imaging protocol: Radiologic exam of the chest. Views: 1 view. COMPARISON: CR XR thoracic spine 3V* [id number] 12/08/2021 1:11 PM FINDINGS: Lungs: Calcified left mid to lower lung granuloma. No consolidation. Pleural spaces: No substantial pleural effusion or pneumothorax. Note that the inferiormost left costophrenic angle not included in the field of view. Heart/Mediastinum: Unremarkable. No cardiomegaly. Bones/joints: Unremarkable. XR/XR chest 1V portable [id number] IMPRESSION: No acute findings.
--- NOTE | 2023-01-19 09:36 | ECG_ITS ---
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 Measurements Intervals [place] Rate: 72 P: 76 NM: 147 QRS: 78 QRSD: 86 T: 72 QT: 371 QTc: 409 Interpretive Statements SINUS RHYTHM No previous ECG available for comparison Normal ECG Electronically Signed On 01-19-2023 12:40:19 CHEMICAL ETCHING PROCESSOR by Shaila Poon M.D. [id number] f
[2023-01-19 09:56] LABS: Basophils % 0.2 %; Eosinophils # 0.2 10^3/uL (0.0-0.8); Eosinophils % 1.6 %; Hematocrit 46.8 % (37-53); Lymphocytes # 2.9 10^3/uL (0.8-4.8); Lymphocytes % 29.6 %; Mean Corpuscular HGB Conc 33.8 g/dL (30-55); Mean Corpuscular Volume 91.9 fl (82-101); Mean Platelet Volume 9.8 fL (7.4-10.4); Monocytes # 0.7 10^3/uL (0.2-0.9); Monocytes % 7.5 %; Neutrophils # 5.92 10^3/uL (1.8-7.7); Neutrophils % 60.9 %; Nucleated Red Blood Cells % 0 %; Platelet Count 248 10^3/cmm (157-399); Red Blood Count 5.09 10^6/uL (3.85-5.65); Red Cell Distribution Width 13.1 % (12.1-15.1); White Blood Count 9.73 10^3/uL (3.29-11.43)
--- NOTE | 2023-01-19 10:08 | W.ED.CHESTPA ---
HPI - Chest Pain General: Chief Complaint: Chest Pain Stated Complaint: Cp, dizzy Time Seen by Provider: 01/19/23 09:32 Source: patient Mode of arrival: ambulatory History of Present Illness: 37-year-old male presents emergency room with productive cough chest discomfort that is worse with palpation and deep inspiration and cough has been going on for last 3 to 4 days. No fever sweats chills no hemoptysis. No significant past medical history has had a couple episodes of vomiting and some headache with it as well. MD complaint: chest pain Onset (ago): day(s) (3-4) Timing of current episode: episodic Onset: other (Coughing deep inspiration and palpation) Pain location: left chest Pain radiation: left shoulder Quality: sharp Relieving factors: nothing Exacerbating factors: inspiration, palpation and other (Coughing) Associated symptoms: Deny abdominal pain, diaphoresis, dyspnea, fever(s), leg edema, nausea, palpitations, sense of impending doom, syncope or vomiting Treatment prior to arrival: none Review of Systems Const: Denies: fever(s), chills or diaphoresis Card: Denies: chest pain, palpitations or syncope Resp: Denies: dyspnea GI: Denies: abdominal pain, nausea or vomiting : Denies: dysuria, urinary frequency or urinary urgency Musc: Denies: neck pain or back pain Skin/Breast: Denies: rash PFSH ED PFSH: Medical History Psychiatric care Physical Exam Const: GENERAL APPEARANCE: cooperative and comfortable ORIENTATION/CONSCIOUSNESS: Yes awake, Yes oriented to person, Yes oriented to place and Yes oriented to time HENMT: COMMON NORMALS: normocephalic, atraumatic and hearing grossly normal bilaterally HEAD & SCALP: normocephalic and atraumatic Chest: OTHER: Pain with palpation parasternal at the nipple line Resp: COMMON NORMALS: normal respiratory effort, No retractions, No use of accessory muscles and clear to auscultation bilaterally AUSCULTATION: clear to auscultation bilaterally Cardio: COMMON NORMALS: regular rate, regular rhythm and No murmurs present (Cardio) RATE: regular rate RHYTHM: regular rhythm GI: COMMON NORMALS: Soft to palpation and No hepatosplenomegaly present AUSCULTATION: Yes normoactive bowel sounds PALPATION: Yes Soft to palpation, No Tenderness to palpation present (GI), No Guarding due to palpation present (GI) and Yes No hepatosplenomegaly present Extremity: COMMON NORMALS: normal to inspection, capillary refill normal, no clubbing, cyanosis or edema, no calf tenderness and no pedal edema Neuro: SENSORIUM/ORIENTATION: Yes oriented to person, Yes oriented to place and Yes oriented to time Skin: COMMON NORMALS: no rashes or lesions noted GENERAL SKIN EXAM: no rashes or lesions noted Course Vital Signs: Vital signs: Vital Signs Temperature 97.9 F 01/19/23 09:37 Pulse Rate 74 01/19/23 11:30 Respiratory Rate 19 H 01/19/23 11:30 Blood Pressure 124/65 01/19/23 11:35 Pulse Oximetry 99 01/19/23 11:30 Oxygen Delivery Me thod Room Air 01/19/23 11:10 MDM - Chest Pain Medical Decision Making EKG shows no acute changes cardiac enzymes normal. Reproducible chest pain to palpation with inspiration. He has been coughing up mucus as well chest x-ray does not show any infiltrate pneumothorax or widening mediastinum we will discharge patient home on doxycycline steroid taper and albuterol as needed. Medical Records I reviewed the patient's medical records. Lab Data I reviewed the patient's lab results. 01/19/23 09:49 01/19/23 09:49 Radiology Impressions Chest X-Ray 01/19/23 09:33 IMPRESSION: No acute findings. Laboratory Results WBC 9.73 10^3/uL (3.29-11.43) 01/19/23 09:49 RBC 5.09 10^6/uL (3.85-5.65) 01/19/23 09:49 Hgb 15.80 g/dL (11.27-16.99) 01/19/23 09:49 Hct 46.8 % (37-53) 01/19/23 09:49 MCV 91.9 fl (82-101) 01/19/23 09:49 MCH 31.0 pg (27-33) 01/19/23 09:49 MCHC 33.8 g/dL (30-55) 01/19/23 09:49 RDW 13.1 % (12.1-15.1) 01/19/23 09:49 Plt Count 248 10^3/cmm (157-399) 01/19/23 09:49 MPV 9.8 fL (7.4-10.4) 01/19/23 09:49 Neut % (Auto) 60.9 % 01/19/23 09:49 Lymph % (Auto) 29.6 % 01/19/23 09:49 [place] % (Auto) 7.5 % 01/19/23 09:49 Eos % (Auto) 1.6 % 01/19/23 09:49 Baso % (Auto) 0.2 % 01/19/23 09:49 Neut # (Auto) 5.92 10^3/uL (1.8-7.7) 01/19/23 09:49 Lymph # (Auto) 2.9 10^3/uL (0.8-4.8) 01/19/23 09:49 [place] # (Auto) 0.7 10^3/uL (0.2-0.9) 01/19/23 09:49 Eos # (Auto) 0.2 10^3/uL (0.0-0.8) 01/19/23 09:49 Baso # (Auto) 0.0 10^3/uL (0.0-0.1) 01/19/23 09:49 Nucleated RBC % (auto) 0 % 01/19/23 09:49 Nucleated RBCs # 0.0 /100WBC 01/19/23 09:49 Sodium 141 mmol/L (136-145) 01/19/23 09:49 Potassium 4.2 mmol/L (3.5-5.1) 01/19/23 09:49 Chloride 103 mmol/L (98-107) 01/19/23 09:49 Carbon Dioxide 31 mmol/L (22-29) H 01/19/23 09:49 Anion Gap 11.2 (5-19) 01/19/23 09:49 BUN 13 mg/dL (6-20) 01/19/23 09:49 Creatinine 1.0 mg/dL (0.7-1.2) 01/19/23 09:49 GFR Calculation 84.1 mL/min (90-130) L 01/19/23 09:49 Glucose 85 mg/dL (65-115) 01/19/23 09:49 Calculated Osmolality 291 mOsm/kg (285-295) 01/19/23 09:49 Calcium 9.9 mg/dL (8.5-10.5) 01/19/23 09:49 Total Bilirubin 0.4 mg/dL (0.15-1.2) 01/19/23 09:49 AST 21 U/L (0-40) 01/19/23 09:49 ALT 17 U/L (0-41) 01/19/23 09:49 Alkaline Phosphatase 97 U/L (40-130) 01/19/23 09:49 Troponin T Baseline < 6 ng/L (0-15) 01/19/23 09:49 Total Protein 7.2 g/dL (6.6-8.7) 01/19/23 09:49 Albumin 4.7 g/dL (3.5-5.2) 01/19/23 09:49 Globulin 2.5 g/dL (1.3-4.6) 01/19/23 09:49 All radiology interpretation(s) finalized by discharge Discharge Plan Discharge Patient Disposition: Home Clinical Impression: Bronchitis, Pleuritic chest pain Condition: Stable Prescriptions: New doxycycline hyclate 100 mg capsule 100 mg PO BID 10 Days Qty: 20 0RF Medrol (Leif) 4 mg tablets,dose pack See Rx Instructions .ROUTE .COMPLEX Qty: 21 0RF Rx Instructions: orally per package directions albuterol sulfate 90 mcg/actuation HFA aerosol inhaler 2 inh INHALATION Q4H PRN (Reason: shortness of breath or wheezing) Qty: 18 0RF No Action meloxicam 7.5 mg tablet 7.5 mg PO DAILY mirtazapine 45 mg tablet 45 mg PO .HS Qty: 30 2RF trazodone 100 mg tablet 200 mg PO .HS PRN (Reason: insomnia) Qty: 60 2RF risperidone [Risperdal] 1 mg tablet 1 mg PO BID Qty: 60 2RF Discharge Orders: Discharge ED (Routine); Ordered 01/19/23 Ordered By: Lester Whatley Referrals: Alexandria Jean DO [Primary Care Provider] - Discharge Diet: Usual diet Discharge Activity: Increase activity as tolerated Patient Instructions: Bronchitis (Acute) - Adult, Opioid Safety, Pain Management Activity Restrictions/Additional Instructions: Thank you for choosing [facility] for your healthcare needs today. Please realize this is an emergency room and that we are providing you with a medical screening exam and this may not be complete and all inclusive of all the testing and or work up that you may need to determine your ailment or severity of your illness. It is very important that you follow up as instructed or that you return to the Emergency Department should you have concerns or if your condition changes or worsens in any way. You were seen today for chest comfort your cardiac enzymes and EKG were normal chest x-ray did not show any acute infiltrates suspect based on the productive cough and the pleuritic-like chest pain this is from infectious process start doxycycline 100 p.o. twice daily albuterol and a steroid taper if not improving follow-up with your primary care doctor. 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
[2023-01-19 10:18] LABS: Alanine Aminotransferase 17 U/L (0-41); Albumin Level 4.7 g/dL (3.5-5.2); Alkaline Phosphatase 97 U/L (40-130); Aspartate Amino Transferase 21 U/L (0-40); Blood Urea Nitrogen 13 mg/dL (6-20); Calcium 9.9 mg/dL (8.5-10.5); Carbon Dioxide 31 mmol/L (22-29); Chloride 103 mmol/L (98-107); Globulin 2.5 g/dL (1.3-4.6); Glomerular Filtration Rate 84.1 mL/min (90-130); Glucose 85 mg/dL (65-115); Osmolality Calculated 291 mOsm/kg (285-295); Sodium 141 mmol/L (136-145); Total Bilirubin 0.4 mg/dL (0.15-1.2); Total Protein 7.2 g/dL (6.6-8.7)
[2023-01-19 10:19] LABS: Troponin(5th) Baseline < 6 ng/L (0-15)
[2023-01-19 10:27] LABS: Anion Gap 11.2 (5-19); Potassium 4.2 mmol/L (3.5-5.1)
== END 2023-01-19 11:41 | disposition home or self-care (01) ==
PROVIDERS: Emergency Provider Family Medicine; PCP Family Medicine
DX: J40 Bronchitis, not specified as acute or chronic (principal); R09.1 Pleurisy
CPT/HCPCS: 71045; 80053; 84484; 85025; 93005; 93010; 99285

== ENCOUNTER 2025-01-07 15:11 | Outpatient (CLI) | payer BC, MEDICAID, SELFPAY ==
--- NOTE | 2025-01-07 15:17 | XR_ITS ---
WS: [id number] Exam: XR shoulder RT min 2V* [id number] Date/Time of Exam: 01/07/2025 3:26 PM Reason For Exam: RIGHT SHOULDER JOINT PAIN DLP: No fracture. The joints are preserved. Normal soft tissues. XR/XR shoulder RT min 2V* [id number] IMPRESSION: 1. Negative RIGHT shoulder.
== END 2025-01-07 15:12 | disposition home or self-care (01) ==
LOC: RAD 15:14
PROVIDERS: PCP Family Medicine; Visit Provider Family Medicine
DX: M25.511 Pain in right shoulder (principal)
CPT/HCPCS: 73030